=== PATIENT | male | born 1970 | race Caucasian/White ===

== ENCOUNTER 2020-09-07 11:01 | Emergency (ER) | payer OTHER, SELFPAY ==
[2020-09-07 11:10] VITALS: BP 131/80; PULSE 52; RESP 14; TEMP 36.6; O2SAT 98
--- NOTE | 2020-09-07 11:14 | ED.SKABFB ---
HPI - Skin/Abscess/Foreign Bdy General Chief complaint: Extremity Injury, Lower Stated complaint: Blister on big Toe (Right Foot) Time Seen by Provider: 09/07/20 11:14 Source: patient and RN notes reviewed History of Present Illness HPI narrative: Patient is a 49-year-old male who presents the urgent care with complaints of a blister to the right great toe. Patient states that he noticed the blister on Saturday and it popped yesterday. Patient then proceeded to remove the skin from the area after the blister was draining. Patient states it has become more painful and red. Patient has not done anything for the area. Patient is continue to wear steel toed boots. Denies of any fever, chills, nausea, vomiting. No other acute complaints. No acute distress noted. Patient aware of the plan of care. Some parts of this dictation were generated by voice recognition software and may contain typographical and/or grammatical inaccuracies. Related Data Home Medications Medication Instructions Recorded Confirmed buprenorphine-naloxone [Suboxone] 1 tablet SUBLINGUAL TID 09/07/20 09/07/20 hydroxyzine HCl 25 mg PO TID 09/07/20 09/07/20 quetiapine 50 mg PO DAILY 09/07/20 09/07/20 quetiapine 200 mg PO DAILY 09/07/20 09/07/20 Allergies Allergy/AdvReac Type Severity Reaction Status Date / Time No Known Allergies Allergy Verified 09/07/20 11:18 Review of Systems Review of Systems: Narrative: CONSTITUTIONAL: Denies fever, chills, or sweats. EYES: Denies visual changes, redness, or discharge. ENT: Denies rhinorrhea, congestion, sore throat, or otalgia. CARDIOVASCULAR: Denies chest pain, palpitations, or edema. RESPIRATORY: Denies cough or dyspnea. GASTROINTESTINAL: Denies abdominal pain, nausea, vomiting, or diarrhea. GENITOURINARY: Denies dysuria or hematuria. SKIN: Reports of a busted blister to the right great toe MUSCULOSKELETAL: Denies back pain, joint pain, or myalgia. NEUROLOGIC: Denies headache, numbness, or weakness. All other systems reviewed are negative, except as documented in HPI. PMFSH Comments At the time of my signature, I reviewed and agree with the nursing past medical, surgical, social, and family history. There is no relevant family history pertinent to the patient complaint. Exam Narrative: Exam Narrative: GENERAL: This is a well-nourished, well-developed patient, in no apparent distress. HEAD: normocephalic, atraumatic. EYES: PERRL. Sclera clear/white. Vision is grossly intact. EARS: External ears normal NOSE: External nose normal with no obvious nasal discharge, nares without redness, no rhinorrhea. THROAT: Mucous membranes moist NECK: Neck supple CARDIOVASCULAR: Regular rate and rhythm without murmurs, gallops, or rubs. RESPIRATORY: Clear to auscultation. Breath sounds equal bilaterally. No wheezes, rales, or rhonchi. SKIN: 1 x 2 cm erythemic painful wound noted to the distal tip of the right great toe NEURO: awake, alert, and oriented to person, place and time. There were no obvious focal neurologic abnormalities. EXTREMITIES: Positive strong right pedal pulse with capillary refill less than 2 seconds. No edema or erythema noted to the right lower extremity. Course Vital Signs Vital signs: Vital Signs Temperature 98 F 09/07/20 11:10 Pulse Rate 52 L 09/07/20 11:10 Respiratory Rate 14 09/07/20 11:10 Blood Pressure 131/80 09/07/20 11:10 Pulse Oximetry 98 09/07/20 11:10 Temperature 98 F 09/07/20 11:10 Pulse Rate 52 L 09/07/20 11:10 Respiratory Rate 14 09/07/20 11:10 Blood Pressure 131/80 09/07/20 11:10 Pulse Oximetry 98 09/07/20 11:10 Reviewed MDM - Skin/Abscess/Foreign Bdy MDM Narrative Medical decision making narrative: Advised the patient to clean the toe in plain Dial soap and water at least twice per day or as needed if soiled. Keep the toe covered while at work or having to wear shoes. Otherwise, keep it open to air. Apply prescription cream to the affected ar
== END 2020-09-07 11:27 | disposition home or self-care (01) ==
PROVIDERS: Emergency Provider Nurse Practitioner Family
DX: S91.101A Unspecified open wound of right great toe without damage to nail, initial encounter (principal); X58.XXXA Exposure to other specified factors, initial encounter; F32.9 Major depressive disorder, single episode, unspecified
CPT/HCPCS: 99213; G0463

== ENCOUNTER 2021-11-04 17:56 | Emergency (ER) | payer OTHER, SELFPAY ==
--- NOTE | ~2021-11-04 | XR_ITS ---
EXAM: XR elbow LT min 3V DATE: 11/04/2021 18:22 HISTORY: pop medial elbow. post fx 2017 same area . COMPARISON: 11/02/2016. FINDINGS: Normal mineralization. No fracture or dislocation. No lytic or blastic lesion. Degenerativ e change in the elbow joint. Medial and lateral enthesopathy. No erosion or periosteal change. [employer] ior soft tissue swelling. IMPRESSION: No acute osseous finding in the left elbow. Reviewed, dictated and finalized at location K.
[2021-11-04 18:06] VITALS: BP 143/104; PULSE 69; RESP 16; TEMP 37.1; O2SAT 99
--- NOTE | 2021-11-04 18:34 | ED.UPPEXIN ---
HPI - Extremity Injury (Upper) General Chief Complaint: Extremity Injury, Upper Stated Complaint: Left Elbow Injury Time Seen by Provider: 11/04/21 18:34 Source: patient Mode of arrival: ambulatory Limitations: no limitations History of Present Illness HPI narrative: 50 y/o male presented for c/o left elbow pain and swelling for 2 days. Denies injury. States he felt it pop as he was getting in the truck, similar sensation as when he broke his humerus 5 years ago. No redness or bruising, no open wounds reported. Endorses decreased range of motion to the elbow due to pain and swelling. Denies numbness, tingling or weakness of the arm. Using pain cream and otc meds. Related Data Home Medications Medication Instructions Recorded Confirmed quetiapine 200 mg tablet 200 mg PO DAILY 09/07/20 11/04/21 quetiapine 50 mg tablet 50 mg PO DAILY 09/07/20 11/04/21 valacyclovir 500 mg tablet 500 mg PO DAILY 11/04/21 11/04/21 Allergies Allergy/AdvReac Type Severity Reaction Status Date / Time No Known Allergies Allergy Verified 11/04/21 18:12 Review of Systems Review of Systems: CONSTITUTIONAL: Denies body aches, fever, chills CARDIOVASCULAR: Denies chest pain, palpitations, or edema. RESPIRATORY: Denies cough or dyspnea. GASTROINTESTINAL: Denies abdominal pain, nausea, vomiting, or diarrhea. SKIN: Denies rash, itching, or wounds. MUSCULOSKELETAL: Reports joint pain NEUROLOGIC: Denies headache All systems reviewed & are unremarkable except as noted in HPI and below PMFSH Comments At time of signature, I have reviewed and agree with nursing past medical, surgical, social and family history unless otherwise noted. Please see nursing chart for further information. There is no relevant family history pertinent to the presenting complaint Exam Narrative: GENERAL: Well-appearing CHEST: Speaks in full sentences. No respiratory distress. HEART: Regular rate and rhythm. Normal and equal peripheral pulses. EXTREMITIES: Left elbow with moderate swelling, decreased ROM to elbow. No redness or bruising. Left hand has normal strength and sensation. No open wounds or obvious deformity; pulse palpable and equal bilaterally, skin warm, dry, pink. Capillary refill less than 3 seconds. SKIN: Warm, dry, no rash. IVDA scarring NEURO: Alert and oriented x3. PSYCH: Normal mood and affect Course Course Emergency Course: Patient is aware of diagnosis, understands and agrees to treatment plan. Anticipatory guidance given. Patient agrees to follow-up as directed and is aware of reasons to seek care at the emergency department. Portions of this record may have been created with voice recognition software Level of Care: Express Care Visit Vital Signs Vital signs: Vital Signs Temperature 98.7 F 11/04/21 18:06 Pulse Rate 69 11/04/21 18:06 Respiratory Rate 16 11/04/21 18:06 Blood Pressure 143/104 H 11/04/21 18:06 Pulse Oximetry 99 11/04/21 18:06 Oxygen Delivery Room Air 11/04/21 18:06 Temperature 98.7 F 11/04/21 18:06 Pulse Rate 69 11/04/21 18:06 Respiratory Rate 16 11/04/21 18:06 Blood Pressure 143/104 H 11/04/21 18:06 Pulse Oximetry 99 11/04/21 18:06 Oxygen Delivery Room Air 11/04/21 18:06 Reviewed MDM - Extremity Injury (Upper) MDM Narrative Medical decision making narrative: Joint pain and swelling without injury. Steroid Rx. Advised supportive measures and signs/symptoms to go to the ER. Pt is appropriate for outpt treatment and f/u. Differential Diagnosis Differential diagnosis: Likely other (gout, bursitis, arthritis, cellulitis) Imaging Data Radiologist's impression: Ordering Physician: Alejandra Turpin APRN Date of Service: 11/04/21 Procedure(s): XR elbow LT min 3V Accession Number(s): [id number] cc: Alejandra Turpin APRN; [employer] MARKETING EXECUTIVE PHYSICIAN~ EXAM:? XR elbow LT min 3V DATE: 11/04/2021 18:22 HISTORY: pop medial elbow. post fx 2017 same area . COMPARISON:?
== END 2021-11-04 18:45 | disposition home or self-care (01) ==
PROVIDERS: Emergency Provider Nurse Practitioner Family
DX: M25.522 Pain in left elbow (principal); M25.422 Effusion, left elbow; I25.2 Old myocardial infarction; F32.A Depression, unspecified
CPT/HCPCS: 73080; 99213; G0463